=== PATIENT | female | born 1980 | race Caucasian/White ===

== ENCOUNTER → 2023-10-03 | Emergency (ER) | payer BC ==
[~2023-10-03] MED LIST: KETOROLAC 30 MG/ML INJ ONE; NA CHLORIDE 0.9% 1,000 ML ONE
[2023-10-03 19:49] LABS: Specific Gravity 1.009 (1.005-1.030)
[2023-10-03 19:50] LABS: Specific Gravity 1.009 (1.005-1.030); Sqamous Epithelial <5 /HPF (None Seen); Urine Bacteria None Seen /HPF (<20); Urine Bilirubin NEGATIVE (Negative); Urine Blood Negative (Negative); Urine Clarity Clear (Clear); Urine Color Yellow (Yellow); Urine Culture Reflex Order NOT NEEDED; Urine Glucose NEGATIVE (Negative); Urine Ketones 2+ (Negative); Urine Microscopic Reflex YN ORDER UMIC; Urine Mucus Slight /HPF (None Seen); Urine Nitrite NEGATIVE (Negative); Urine Protein NEGATIVE (Negative); Urine RBC <5 /HPF (None Seen); Urine Urobilinogen Normal (Normal); Urine WBC <5 /HPF (<5); Urine pH 5.5 (5.0-7.0)
[2023-10-03 20:07] LABS: Absolute Eosinophils 0.1 K/uL (0-0.5); Absolute Lymphocytes (CBC) 1.7 K/uL (0.7-4.9); Absolute Monocytes 0.3 K/uL (0.1-1.3); Absolute Neutrophil 2.5 K/uL (1.8-8.0); Basophils % 0.5 % (0-1.3); Eosinophils % 2.1 % (0-4.4); Hematocrit 41.4 % (36.0-45.0); Hemoglobin 13.8 g/dL (12.0-15.0); Lymphocytes % 35.9 % (15.3-44.8); MCH 27.5 pg (27.0-35.0); MCHC 33.4 g/dL (32.0-36.0); MCV 82.5 fL (80-100); MPV 8.8 fL (7.6-11.3); Monocytes % 7.3 % (3.3-12.3); Neutrophils % 54.2 % (41.7-73.7); Nucleated Red Blood Cells % 0.2 % (0-0); Platelets 276 thou/uL (152-406); RBC Red Blood Cell Count 5.02 M/uL (3.86-4.86); Red Cell Distribution Width 17.3 % (12.1-15.2)
[2023-10-03 20:27] LABS: Albumin 3.6 g/dL (3.4-5.0); Anion Gap 13.7 mEq/L (5.0-15.0); Bilirubin Total 0.4 mg/dL (0.2-1.0); Globulin 3.5 g/dL (2.3-3.5); Potassium 3.7 mEq/L (3.5-5.1); Protein, Total 7.1 g/dL (6.4-8.2)
--- NOTE | 2023-10-03 21:00 | RAD REPORT ---
EXAM DESCRIPTION: CTAbdomen Pelvis W Contrast - 10/03/2023 8:49 pm CLINICAL HISTORY: Abdominal pain. ABD PAIN COMPARISON: No comparisons TECHNIQUE: Biphasic CT imaging of the abdomen and pelvis was performed with 100 ml non-ionic IV cont rast. All CT scans are performed using dose optimization technique as appropriate and may include automated exposure control or mA/KV adjustment according to patient size. FINDINGS: The lung bases are clear.Postsurgical changes affect the stomach. The liver, spleen, pancreas, adrenal glands and kidneys are within normal limits. Small benign liver cyst. No bowel obstruction, free air, free fluid or abscess. Postsurgical changes about the small bowel. Th e appendix is normal. No evidence of significant lymphadenopathy. No suspicious bony findings. IMPRESSION: No acute intra-abdominal or pelvic finding.
--- NOTE | 2023-10-03 23:41 | EDPHYS ---
Physician Documentation [facility] Name: George Freeman Age: 43 yrs Sex: Female : 1980 Arrival Date: 10/03/2023 Time: 18:43 Bed 19 Private MD: ED Physician Mayito Garner HPI: 10/02 23:53 This 43 yrs old Female presents to ER via Ambulatory with complaints of Urinary Problem.kb 23:54 Pt is a 43 year old female who presents with urinary retention since 1000 this morning. kb States she was diagnosed with a uti and yeast infection one week ago, was put on flagyl, macrobid and diflucan. States she has taken the medication and the symptoms resolved. Today she was able to urinate a small amount at 1000, but unable to urinate since then. States she feels like her bladder is full. . 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 - Social history:: Smoking status: Patient denies any tobacco usage or history of. ROS: 23:52 Constitutional: As per HPI kb Exam: 23:52 Constitutional: This is a well developed, well nourished patient who is awake, alert, kb and in no acute distress. Head/Face: Normocephalic, atraumatic. ENT: Moist Mucous membranes Cardiovascular: Regular rate Respiratory: Respirations even and unlabored. No increased work of breathing. Talking in full sentences Abdomen/GI: Soft, non-tender. No distention Skin: Warm, dry with normal turgor. Normal color. MS/ Extremity: Pulses equal, no cyanosis. Neurovascular intact. Full, normal range of motion. Neuro: Awake and alert, GCS 15, oriented to person, place, time, and situation. Moves all extremities. Normal gait. Vital Signs: 19:12 BP 127 / 103; Pulse 91; Resp 18; Temp 98; Pulse Ox 99% ; rv 23:55 BP 131 / 98; Pulse 96; Resp 16; Temp 98; Pulse Ox 99% on R/A; rv MDM: 18:53 Patient medically screened. kb 23:52 Differential diagnosis: uti, pyelonephritis, dehydration, abnormal electrolytes, kidney kb stone. Data reviewed: vital signs, nurses notes. Counseling: I had a detailed discussion with the patient and/or guardian regarding the historical points, exam findings, and any diagnostic results supporting the discharge/admit diagnosis, lab results, radiology results, the need for outpatient follow up, an OB/Gyne specialist, a urologist, to return to the emergency department if symptoms worsen or persist or if there are any questions or concerns that arise at home. 10/02 19:13 Order name: CBC with Diff; Complete Time: 20:17 kb 10/02 19:13 Order name: CMP; Complete Time: 20:40 kb 10/02 19:13 Order name: Lipase; Complete Time: 20:40 kb 10/02 19:13 Order name: Test, Urine; Complete Time: 19:50 kb 10/02 19:13 Order name: Urinalysis w/ reflexes; Complete Time: 19:51 kb 10/02 19:13 Order name: CT Abd/Pelvis - IV Contrast Only; Complete Time: 21:02 kb 10/02 19:13 Order name: IV Saline Lock; Complete Time: 19:43 kb 10/02 19:13 Order name: Labs collected and sent; Complete Time: 19:44 kb 10/02 19:13 Order name: Mulligan; Complete Time: 19:44 kb 10/02 21:20 Order name: Misc. Order: remove mulligan; Complete Time: 21:24 kb Administered Medications: 21:24 Drug: NS 0.9% IV 1000 ml IV at 1000 ml once Route: IV; Rate: 1000 ml; Site: right rv antecubital; 23:55 Follow up: IV Status: Completed infusion; IV Intake: 1000ml rv 22:48 Drug: NS 0.9% IV 1000 ml IV at 1000 ml once Route: IV; Rate: 1000 ml; Site: right rv antecubital; 23:54 Follow up: IV Status: Completed infusion; IV Intake: 1000ml rv 23:54 Drug: Ketorolac IM 30 mg IM once Route: IM; Site: right deltoid; rv 23:54 Follow up: Response: Medication administered at discharge. rv Disposition: 10/03 08:02 Co-signature as Attending Physician, Mayito Garner MD I agree with the assessment and cp3 plan of care. Disposition Summary: 10/03/23 23:40 Discharge Ordered Notes: Location: Home kb Condition: Stable kb Diagnosis - Dehydration kb - Retention of urine, unspecified kb Followup: kb - With: Emergency Department - When: As needed - Reason: Worsening of condition Followup: kb - With: Private Physician - When: 2 - 3 days - Reason: Recheck today's complaints, Continuance of care, Re-evaluation by your physician Discharge Instructions: - Discharge Summary Sheet kb - Acute Urinary Retention, Female, [id number] kb - Dehydration, Adult, [id number] kb Forms: - Medication Reconciliation Form kb - Thank You Letter kb - Antibiotic Education kb - Prescription Opioid Use kb - Patient Portal Instructions kb - Leadership Thank You Letter kb Signatures: Dispatcher [employer] EDMS Beba Ferraro, CAREER DEVELOPMENT ENGINEER-C JUAN-Mayito Bonds MD MD cp3 Werner Waldrop, RN RN rv Corrections: (The following items were deleted from the chart) 10/02 23:52 23:52 : Positive for difficulty urinating, kb kb 23:52 23:52 All other systems are negative, kb kb
--- NOTE | 2023-10-03 23:41 | ER ---
Nurse's Notes [facility] Name: George Freeman Age: 43 yrs Sex: Female : 1980 Arrival Date: 10/03/2023 Time: 18:43 Bed 19 Private MD: Diagnosis: Dehydration;Retention of urine, unspecified Presentation: 10/02 19:12 Chief complaint: Patient states: diagnosed with UTI and under treatment with Diflucan rv and then Macrobid. having urinary retention since 1000h today. Coronavirus screen: At this time, the client does not indicate any symptoms associated with coronavirus-19. Ebola Screen: No symptoms or risks identified at this time. Initial Sepsis Screen: Does the patient meet any 2 criteria? No. Patient's initial sepsis screen is negative. Does the patient have a suspected source of infection? No. Patient's initial sepsis screen is negative. Risk Assessment: Do you want to hurt yourself or someone else? Patient reports no desire to harm self or others. Onset of symptoms was October 03, 2023. 19:12 Method Of Arrival: Ambulatory rv 19:12 Acuity: SOFYA 3 rv Triage Assessment: 19:21 General: Appears uncomfortable, Behavior is calm, cooperative. Pain: Denies pain. rv Neuro: Level of Consciousness is awake, alert, obeys commands, Oriented to person, place, time, situation. Cardiovascular: Capillary refill < 3 seconds Patient's skin is warm and dry. Respiratory: Airway is patent. GI: No signs and/or symptoms were reported involving the gastrointestinal system. : Reports inability to void, since 1000. Derm: Skin is intact. 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 - Social history:: Smoking status: Patient denies any tobacco usage or history of. Screenin:23 [facility] ED Fall Risk Assessment (Adult) History of falling in the last 3 months, rv including since admission No falls in past 3 months (0 pts) Score/Fall Risk Level 0 - 2 = Low Risk Oriented to surroundings, Maintained a safe environment, Educated pt \T\ family on fall prevention, incl call for assistance when getting out of bed, Assessed \T\ reinforced patient's understanding of fall precautions. Abuse screen: Denies threats or abuse. Denies injuries from another. Nutritional screening: No deficits noted. Tuberculosis screening: No symptoms or risk factors identified. Assessment: 23:55 Reassessment: pt is able to urinate aproximately 50-100ml. rv Vital Signs: 19:12 BP 127 / 103; Pulse 91; Resp 18; Temp 98; Pulse Ox 99% ; rv 23:55 BP 131 / 98; Pulse 96; Resp 16; Temp 98; Pulse Ox 99% on R/A; rv ED Course: 18:47 Patient arrived in ED. mg5 18:52 Beba Ferraro FNP-C is PHCP. kb 18:52 Mayito Garner MD is Attending Physician. kb 19:07 Werner Waldrop RN is Primary Nurse. rv 19:20 Inserted saline lock: 20 gauge in right antecubital area, using aseptic technique. rv Blood collected. 19:21 Triage completed. rv 19:21 Arm band placed on right wrist. rv 19:23 Patient has correct armband on for positive identification. Client placed on continuous rv cardiac and pulse oximetry monitoring. NIBP monitoring applied. 19:23 No provider procedures requiring assistance completed. rv 20:01 CBC with Diff Sent. pf1 20:01 CMP Sent. pf1 20:01 Lipase Sent. pf1 20:51 CT Abd/Pelvis - IV Contrast Only In Process Unspecified. EDMS 23:56 IV discontinued, intact, bleeding controlled, No redness/swelling at site. Pressure rv dressing applied. Administered Medications: 21:24 Drug: NS 0.9% IV 1000 ml IV at 1000 ml once Route: IV; Rate: 1000 ml; Site: right rv antecubital; 23:55 Follow up: IV Status: Completed infusion; IV Intake: 1000ml rv 22:48 Drug: NS 0.9% IV 1000 ml IV at 1000 ml once Route: IV; Rate: 1000 ml; Site: right rv antecubital; 23:54 Follow up: IV Status: Completed infusion; IV Intake: 1000ml rv 23:54 Drug: Ketorolac IM 30 mg IM once Route: IM; Site: right deltoid; rv 23:54 Follow up: Response: Medication administered at discharge. rv Medication: 19:23 VIS not applicable for this client. rv Intake: 23:54 IV: 1000ml; Total: 1000ml. rv 23:55 IV: 1000ml; Total: 2000ml. rv Outcome: 23:40 Discharge ordered by . bing 23:56 Discharged to home ambulatory, rv 23:56 Condition: good 23:56 Discharge instructions given to patient, Instructed on discharge instructions, follow up and referral plans. Demonstrated understanding of instructions, follow-up care, 23:56 Patient left the ED. rv Signatures: Dispatcher [employer] EDMS Beba Ferraro, AUTO TRANSMISSION SPECIALIST-C AUTO TRANSMISSION SPECIALIST-Werner Childers RN RN rv Jade Sanchez RN RN pf1 [place] [id number]
[2023-10-04 00:29] VITALS: BP 131/98; TEMP 98; O2SAT 99
== END ==
LOC: ER 18:43
DX: E86.0 Dehydration (principal); R33.9 Retention of urine, unspecified; I10 Essential (primary) hypertension; Z88.0 Allergy status to penicillin; Z88.8 Allergy status to other drugs, medicaments and biological substances
CPT/HCPCS: 96361; 85025; 81001; 36415; 81025; 83690; 80053; 74177; 96360; 96372; 99284; Q9967; J7030 ×2